=== PATIENT | female | born 1980 | race Two or more races ===

== ENCOUNTER 2019-09-28 12:32 | Emergency (ER) | payer OTHER ==
[~2019-09-28] VITALS: Ht 165.1 cm; Wt 65.8 kg
[2019-09-29] MEDS ORDERED: AMLODIPINE-OLM1 EAC2 (17:08)
== END 2019-09-28 17:00 | disposition home or self-care (01) ==
LOC: ER 12:32
DX: R11.2 Nausea with vomiting, unspecified (principal); E86.0 Dehydration

== ENCOUNTER 2019-09-29 16:32 | Emergency (ER) | payer OTHER ==
[~2019-09-29] VITALS: Ht 165.1 cm; Wt 65.8 kg
[2019-09-29] MEDS ORDERED: AMLODIPINE-OLM1 EAC2 (17:08)
== END 2019-09-30 05:02 | disposition left against medical advice (07) ==
LOC: ER 16:32
DX: K29.70 Gastritis, unspecified, without bleeding (principal); E86.0 Dehydration; I10 Essential (primary) hypertension